=== PATIENT | female | born 1960 | race Caucasian/White ===

== ENCOUNTER 2017-09-03 11:54 | Emergency (ER) | payer OTHER ==
[2017-09-03] MEDS: Aspirin 81 MG Tab.Chew PO ONE (12:19)
[2017-09-03] MEDS: Nitroglycerin 2% Oint 1 GM UD Packet TOP STA (12:44)
[2017-09-03] MEDS: Sodium Chloride 0.9% 10 ML Syringe FLUSH PRN (12:48)
--- NOTE | 2017-09-03 13:09 | EDM.PDOC ---
ED HPI GENERAL MEDICAL PROBLEM - General Chief Complaint: Chest Pain Stated Complaint: CHEST PAIN Time Seen by Provider: 09/03/17 12:54 Source of Information: Reports: Patient, Family History Limitations: Reports: No Limitations - History of Present Illness INITIAL COMMENTS - FREE TEXT/NARRATIVE: 57 years old w f with a H/O HTN and elevated cholesterol, came to the ed with her SO due to palpitations, C/P and HTN. Pt's BP was at home 177/6t. She was recently started on 50 mg HCTZ, which appeared to her did not have an effect on her BP. No N/V/D or dizziness, no SOB or any other acute medical issue at this time. BP 184/83 Pulse 101 Temp 98.2 O 2 claude 100% Onset Date: 09/02/17 Onset Time: 08:00 Duration: Day(s):, Intermittent Location: Reports: Chest Quality: Reports: Dull, Pressure (11/18) Severity: Mild Improves with: Reports: Medication Worsens with: Reports: None Context: Reports: Other (h/o HTN and elevated cholesterol) Associated Symptoms: Reports: Other (palpitation) - Related Data Allergies Allergy/AdvReac Type Severity Reaction Status Date / Time No Known Allergies Allergy Verified 09/03/17 12:12 Home Meds: Home Meds Aspirin 81 mg PO DAILY 09/03/17 [History] Losartan/Hydrochlorothiazide [Losartan-HCTZ 50-12.5 MG] 1 each PO DAILY #30 tablet 09/03/17 [Rx] Magnesium Oxide 400 mg PO BID #4 tab 09/03/17 [Rx] Potassium Chloride 20 meq PO Q4HR #4 tablet.er 09/03/17 [Rx] atorvaSTATin [Lipitor] 20 mg PO DAILY 09/03/17 [History] ED ROS GENERAL - Review of Systems Review Of Systems: See Below Constitutional: Reports: No Symptoms HEENT: Reports: No Symptoms Respiratory: Reports: No Symptoms Cardiovascular: Reports: Chest Pain (10), Palpitations Endocrine: Reports: No Symptoms GI/Abdominal: Reports: No Symptoms : Reports: No Symptoms Musculoskeletal: Reports: No Symptoms Skin: Reports: No Symptoms Neurological: Reports: No Symptoms Psychiatric: Reports: No Symptoms Hematologic/Lymphatic: Reports: No Symptoms Immunologic: Reports: No Symptoms ED EXAM, GENERAL - Physical Exam Exam: See Below Exam Limited By: No Limitations General Appearance: Alert, WD/WN, No Apparent Distress, Mild Distress Eye Exam: Bilateral Eye: Normal Inspection Ears: Normal External Exam Ear Exam: Bilateral Ear: Auricle Normal Nose: Normal Inspection Throat/Mouth: Normal Inspection, Normal Lips Head: Atraumatic, Normocephalic Neck: Normal Inspection, Supple, Non-Tender Respiratory/Chest: No Respiratory Distress, Lungs Clear, Normal Breath Sounds, No Accessory Muscle Use, Chest Non-Tender Cardiovascular: Normal Peripheral Pulses, Regular Rate, Rhythm, No Edema, No Gallop, No JVD, No Murmur, Tachycardia (103) GI/Abdominal: Normal Bowel Sounds, Soft, Non-Tender, No Organomegaly, No Distention, No Abnormal Bruit (Female) Exam: Deferred Rectal (Female) Exam: Deferred Back Exam: Normal Inspection, Full Range of Motion Extremities: Normal Inspection, Normal Range of Motion, Non-Tender, No Pedal Edema, Normal Capillary Refill Neurological: Alert, Oriented, CN II-XII Intact, Normal Cognition, Normal Gait Psychiatric: Normal Affect, Normal Mood Skin Exam: Warm, Dry, Intact, Normal Color, No Rash Lymphatic: No Adenopathy EKG INTERPRETATION EKG Date: 09/03/17 Time: 11:55 Rhythm: NSR Rate (Beats/Min): 103 [place]: Normal P-Wave: Present QRS: Normal ST-T: Normal QT: Normal Comparison: NA - No Prior EKG Course - Vital Signs Text/Narrative:: 57 years old w f with a H/O HTN and elevated cholesterol, came to the ed with her SO due to palpitations, C/P and HTN. Pt's BP was at home 177/6t. She was recently started on 50 mg HCTZ, which appeared to her did not have an effect on her BP. No N/V/D or dizziness, no SOB or any other acute medical issue at this time. BP 184/83 Pulse 101 Temp 98.2 O 2 claude 100% PE: WNWD W F with HTN/ C/P and palpitation Labs: K 2.8 Mg 1.7, nl Cardiac enzymes, Troponin 0,015 Imaging: CXE NAD Impression: Hypokalemia, hyponatremia, palpitation, HTN Tx; Potassium. Mg, NTG Reexam: Improved BP was 138/67 on D/C, palpitation and pain subsided Plan: D/C with instructions - Orders/Labs/Meds Orders: Active Orders 24 hr Category Date Time Status Sodium Chloride 0.9% [Saline Flush] Med 09/03/17 12:44 Active 10 ml FLUSH ASDIRECTED PRN Saline Lock Insert [OM.PC] Routine Oth 09/03/17 12:44 Ordered EKG 12 Lead [EK] Routine Ther 09/03/17 11:50 Ordered Medication Orders Sodium Chloride (Saline Flush) 10 ml FLUSH ASDIRECTED PRN PRN Reason: Keep Vein Open Last Admin: 09/03/17 12:48 Dose: 10 ml Labs: Laboratory Tests 09/03/17 09/03/17 09/03/17 Range/Units 12:40 12:40 12:40 WBC 6.2 (4.5-12.0) X10-3/uL RBC 4.64 (3.23-5.20) x10(6)uL Hgb 13.1 (11.5-15.5) g/dL Hct 38.9 (30.0-51.3) % MCV 83.8 (80-96) fL MCH 28.1 (27.7-33.6) pg MCHC 33.6 (32.2-35.4) g/dL RDW 12.1 (11.5-15.5) % Plt Count 260 (125-369) X10(3)uL MPV 8.4 (7.4-10.4) fL Neut % (Auto) 71.7 (46-82) % Lymph % (Auto) 21.9 (13-37) % Stephens % (Auto) 4.5 (4-12) % Eos % (Auto) 1 (1.0-5.0) % Baso % (Auto) 1 (0-2) % Neut # (Auto) 4.4 (1.6-8.3) # Lymph # (Auto) 1.4 (0.6-5.0) # Stephens # (Auto) 0.3 (0.0-1.3) # Eos # (Auto) 0.1 (0.0-0.8) # Baso # (Auto) 0.0 (0.0-0.2) # PT 10.4 (8.7-11.1) INR 1.03 (0.89-1.13) Sodium 139 (135-145) mmol/L Potassium 2.8 L* (3.5-5.3) mmol/L Chloride 98 L (100-110) mmol/L Carbon Dioxide 32 (21-32) mmol/L BUN 16 (7-18) mg/dL Creatinine 0.6 (0.55-1.02) mg/dL Est Cr Clr Drug Dosing TNP Estimated GFR (MDRD) > 60 (>60) BUN/Creatinine Ratio 26.7 H (9-20) Glucose 119 H (80-116) mg/dL Calcium 9.1 (8.6-10.2) mg/dL Magnesium (1.8-2.5) mg/dL CK-MB (CK-2) (0.5-5.0) ng/mL Troponin I (<0.017-0.056) ng/mL 09/03/17 09/03/17 Range/Units 12:40 12:40 WBC (4.5-12.0) X10-3/uL RBC (3.23-5.20) x10(6)uL Hgb (11.5-15.5) g/dL Hct (30.0-51.3) % MCV (80-96) fL MCH (27.7-33.6) pg MCHC (32.2-35.4) g/dL RDW (11.5-15.5) % Plt Count (125-369) X10(3)uL MPV (7.4-10.4) fL Neut % (Auto) (46-82) % Lymph % (Auto) (13-37) % Stephens % (Auto) (4-12) % Eos % (Auto) (1.0-5.0) % Baso % (Auto) (0-2) % Neut # (Auto) (1.6-8.3) # Lymph # (Auto) (0.6-5.0) # Stephens # (Auto) (0.0-1.3) # Eos # (Auto) (0.0-0.8) # Baso # (Auto) (0.0-0.2) # PT (8.7-11.1) INR (0.89-1.13) Sodium (135-145) mmol/L Potassium (3.5-5.3) mmol/L Chloride (100-110) mmol/L Carbon Dioxide (21-32) mmol/L BUN (7-18) mg/dL Creatinine (0.55-1.02) mg/dL Est Cr Clr Drug Dosing Estimated GFR (MDRD) (>60) BUN/Creatinine Ratio (9-20) Glucose (80-116) mg/dL Calcium (8.6-10.2) mg/dL Magnesium 1.7 L (1.8-2.5) mg/dL CK-MB (CK-2) 2.0 (0.5-5.0) ng/mL Troponin I < 0.017 L (<0.017-0.056) ng/mL Meds: Medications Generic Name Dose Route Start Last Admin Trade Name Freq PRN Reason Stop Dose Admin Sodium Chloride 10 ml 09/03/17 12:44 09/03/17 12:48 Saline Flush FLUSH 10 ml ASDIRECTED PRN Administration Keep Vein Open Discontinued Medications Generic Name Dose Route Start Last Admin Trade Name Freq PRN Reason Stop Dose Admin Aspirin 243 mg 09/03/17 12:13 09/03/17 12:19 Aspirin PO 09/03/17 12:14 243 mg ONETIME ONE Administration Magnesium Oxide 400 mg 09/03/17 13:37 09/03/17 13:56 Magnesium Oxide PO 09/03/17 13:38 400 mg ONETIME STA Administration Nitroglycerin 0.5 gm 09/03/17 12:33 09/03/17 12:44 Nitro-Bid 2% TOP 09/03/17 12:34 0.5 gm ONETIME STA Administration Potassium Chloride 40 meq 09/03/17 13:05 09/03/17 13:10 Klor-Con M20 PO 09/03/17 13:06 40 meq ONETIME ONE Administration Departure - Departure Time of Disposition: 13:58 Disposition: Home, Self-Care 01 Condition: Good Clinical Impression: Hypokalemia, Palpitation, Hypomagnesemia Hypertension Qualifiers: Hypertension type: essential hypertension Qualified Code(s): I10 - Essential ( primary) hypertension Prescriptions: Potassium Chloride 20 meq PO Q4HR #4 tablet.er Losartan/Hydrochlorothiazide [Losartan-HCTZ 50-12.5 MG] 1 each PO DAILY #30 tablet Magnesium Oxide 400 mg PO BID #4 tab Instructions: Hydrochlorothiazide, HCTZ; Losartan tablets, Hypomagnesemia, Hypokalemia, Nitroglycerin skin ointment Referrals: Anna Marie Ashraf [employer] [employer] [Primary Care Provider] - Forms: ED Department Discharge Additional Instructions: Please discontinue the HCTZ and start lorsaten-HCTZ as recommended. Please get you potassiuma nd Mg level checked in 4-5 days. Please come back if your symptoms get worse acutely. - My Orders Last 24 Hours: My Active Orders 09/03/17 11:50 EKG 12 Lead [EK] Routine 09/03/17 12:44 Sodium Chloride 0.9% [Saline Flush] 10 ml FLUSH ASDIRECTED PRN Saline Lock Insert [OM.PC] Routine - Assessment/Plan Last 24 Hours: My Active Orders 09/03/17 11:50 EKG 12 Lead [EK] Routine 09/03/17 12:44 Sodium Chloride 0.9% [Saline Flush] 10 ml FLUSH ASDIRECTED PRN Saline Lock Insert [OM.PC] Routine
[2017-09-03] MEDS: Potassium Chloride 20 MEQ Tab.ER PO ONE (13:10)
[2017-09-03] MEDS: Magnesium Oxide 400 MG Tab PO STA (13:56)
--- NOTE | 2017-09-03 15:08 | CR ---
INDICATION: Left arm pain, hypertension. CHEST: An AP upright portable view of the chest was obtained 09/03/2017. No comparisons are available. The heart appeared normal in size and shape. The mediastinum was unremarkable. Overlying EKG leads are noted. Overlying apparel is noted. A mild dextroconvex scoliosis of the thoracic spine is noted. An active infiltrate or effusion was not identified. IMPRESSION: No acute process. MTDD
== END 2017-09-03 14:27 | disposition home or self-care (01) ==
LOC: FB.ED 11:54
DX: E87.6 Hypokalemia (principal); E87.1 Hypo-osmolality and hyponatremia; E83.42 Hypomagnesemia; I10 Essential (primary) hypertension; Z79.82 Long term (current) use of aspirin; Z79.899 Other long term (current) drug therapy
CPT/HCPCS: 36415; 71045; 80048; 82553; 83735; 84484; 85025; 85610; 93005; 99285; A9270; J7050